=== PATIENT | female | born 1950 | race African-American/Black ===

== ENCOUNTER 2025-07-13 13:17 | Emergency (ER) | payer MEDICARE ==
[~2025-07-13] VITALS: Ht 162.6 cm; Wt 59.0 kg
[2025-07-13] MEDS: IV NS 0.9% 1,000 ML BAG IV ONE (13:40)
[2025-07-13] MEDS ORDERED: HYDROCODONE/APAP 5/325MG TABLET ONE (14:35)
[2025-07-13] MEDS ORDERED: IBUPROFEN 600 MG TABLET ONE (14:36)
[2025-07-13] MEDS: IBUPROFEN 600 MG TABLET PO ONE (14:40)
[2025-07-13] MEDS: HYDROCODONE/APAP 5/325MG TABLET PO ONE (14:58)
[2025-07-13] MEDS ORDERED: IBUP-1490 PO (16:29)
[2025-07-13 16:52] VITALS: BP 139/81; O2SAT 98
== END 2025-07-13 17:35 | disposition home or self-care (01) ==
LOC: ER 13:17
DX: S30.0XXA Contusion of lower back and pelvis, initial encounter (principal); S16.1XXA Strain of muscle, fascia and tendon at neck level, initial encounter; W10.1XXA Fall (on)(from) sidewalk curb, initial encounter; Y93.89 Activity, other specified; Y92.89 Other specified places as the place of occurrence of the external cause; Y99.9 Unspecified external cause status
CPT/HCPCS: 99284; 72125; 96360; 73562 ×2; 73503; 70450; 72131; 73502; J7030